=== PATIENT | male | born 1960 | race Caucasian/White ===

== ENCOUNTER 2018-10-24 07:48 | Day surgery (SDC) | payer OTHER, SELFPAY ==
--- NOTE | 2018-10-13 02:09 | HP_ITS ---
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 Is patient in pain?: No Allergies No Known Allergies Allergy (Unverified 10/13/18 13:57) Medications aspirin 325 mg tablet 325 mg PO DAILY 10/13/18 [History Confirmed 10/13/18] omeprazole 20 mg capsule,delayed release 20 mg PO DAILY 10/13/18 [History Confirmed 10/13/18] [facility] Medical History GERD (gastroesophageal reflux disease) (Acute) Left inguinal hernia (Acute) Surgical History H/O umbilical hernia repair (Acute) s/p vein surgery (Acute) Social History Smoking Status: Never smoker alcohol intake: current alcohol intake frequency: a few times a month HPI HPI HPI: BRAULIO GRANADOS, is a 58 M who presents to the office today for HPI HPI Surgical H&P: Yes HPI: BRAULIO GRANADOS is a 58 M who presents to the office today for evaluation of a bulge in his left inguinal area. Patient states that he has had this for probably better than 10 years it is been gradually getting larger he lifts heavy things and does this on occasion and has done this for many years. The only sensation he has is increasing pressure in the area and no obvious pain. He has had no change in his bowel or bladder habits and he has never had a colonoscopy Exam Const General: no acute distress, well developed, well hydrated Orientation: oriented to person, oriented to place, oriented to time [facility] Head: normocephalic, atraumatic Ears: external ears normal Mouth: moist mucous membranes Eyes Sclera: sclerae normal Pupils: normal by confrontation Neck Neck: no lymphadenopathy noted Neck mass: No Thyroid: thyroid normal, symmetrical Chest Chest palpation & inspection: normal inspection of the chest Resp Effort & Inspection: normal respiratory effort Auscultation: clear to auscultation bilaterally Percussion: percussion normal Cardio Rate: regular rate Rhythm: regular rhythm GI Palpation: soft, no hepatosplenomegaly, no masses, tender Rectal Exam: other Other: A Hernia bilateral inguinal hernia is identified on exam and both are reducible. Rectal exam deferred. Extrem General: normal to inspection, no clubbing, cyanosis or edema Assessment & Plan Problems 1. Non-recurrent bilateral inguinal hernia without obstruction or gangrene K40.20 2. Encounter for screening for malignant neoplasm of colon Z12.11 Plan I have discussed the above with the patient. I have offered the patient colonoscopy for evaluation. I have explained the risks/benefits of the procedure and described the procedure. I have discussed the risks with the patient, including but not limited to: infection, bleeding, perforation of the GI tract requiring emergency surgery, inability to complete the procedure, injury to any internal organs, complications of anesthesia, etc. - the patient understands and agrees to proceed. I have answered all the patient's questions to the patient's satisfaction and the patient has no further questions. The patient has been given instructions for the colon cleansing preparation. My plan is to perform a laparoscopic bilateral inguinal hernia repair. The planned surgical procedure was discussed extensively with the patient. The risks, benefits, anticipated outcomes and possible complication were mentioned. The patient understands that all hernia repair surgery has a chance of recurrence and/or chronic post-operative pain. My staff has also explained the procedure in understandable terms and the patient was given the option to take printed material concerning the planned procedure. The patient had the opportunity to ask questions concerning the planned procedure. The patient freely consents to the planned procedure. Coding Level of Care Code Off vis,new,level 3 Diagnoses Non-recurrent bilateral inguinal hernia without obstruction or gangrene K40.20 ??Obstruction and gangrene presence: without obstruction or gangrene ??Recurrence: non-recurrent Encounter for screening for malignant neoplasm of colon Z12.11 Date Kalia Gotti MD I have re-examined the patient. There are no clinical changes since date of exam.
[2018-10-13 13:56] VITALS: BMI 31.4
[2018-10-24 08:16] VITALS: BP 143/89; PULSE 79; RESP 16; TEMP 36.8; O2SAT 97; BMI 31.1
--- NOTE | 2018-10-24 09:32 | OP.ENDO_ITS ---
10/24/2018 Leif Ledezma Re : Colonoscopy procedure for Charlie Modi Deajim Ledezma This procedure was performed on Wednesday, October 24, 2018. My impressions and recommendations are as follows: Impressions : - Diverticulosis in the sigmoid colon. No specimens collected. - Non-bleeding internal hemorrhoids. - The examination was otherwise normal. Recommendations : - Discharge patient to home. - Resume previous diet. - Continue present medications. - Await pathology results. - Repeat colonoscopy in 10 years for screening purposes. - Return to my office after hernia surgery are complete. My findings are described in the full procedure note, which is enclosed. If I can be of further assistance, please feel free to contact me at Doctor phone number(s): , Fax: [phone], Work: . Sincerely, MD Kalia Butler MD 10/24/2018 9:32:22 AM This report has been signed electronically.
[2018-10-24 09:33] VITALS: BP 140/102; BP 143/89; PULSE 80; RESP 14; TEMP 36.8; O2SAT 93
[2018-10-24 09:40] VITALS: BP 141/91; BP 143/89; PULSE 70; RESP 16; O2SAT 95
[2018-10-24 09:45] VITALS: BP 135/100; BP 143/89; PULSE 71; RESP 16; O2SAT 94
[2018-10-24 09:50] VITALS: BP 130/104; BP 143/89; PULSE 64; RESP 16; TEMP 36.6; O2SAT 94
[2018-10-24 10:16] VITALS: BP 143/89
== END 2018-10-24 10:17 | disposition home or self-care (01) ==
LOC: EN 07:49 → AC 07:50
PROVIDERS: Visit Provider Surgery
PROC: 0DJD8ZZ Inspection of Lower Intestinal Tract, Via Natural or Artificial Opening Endoscopic (ICD-10-PCS; CPT 45378; principal; 2018-10-24 08:55)
DX: Z12.11 Encounter for screening for malignant neoplasm of colon (principal); K40.20 Bilateral inguinal hernia, without obstruction or gangrene, not specified as recurrent; K57.30 Diverticulosis of large intestine without perforation or abscess without bleeding; K64.8 Other hemorrhoids; Z79.82 Long term (current) use of aspirin
CPT/HCPCS: 45378; J7120

== ENCOUNTER 2018-11-08 05:20 | Day surgery (SDC) | payer OTHER, SELFPAY ==
--- NOTE | 2018-10-13 02:09 | HP_ITS ---
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 Is patient in pain?: No Allergies No Known Allergies Allergy (Unverified 10/13/18 13:57) Medications aspirin 325 mg tablet 325 mg PO DAILY 10/13/18 [History Confirmed 10/13/18] omeprazole 20 mg capsule,delayed release 20 mg PO DAILY 10/13/18 [History Confirmed 10/13/18] [facility] Medical History GERD (gastroesophageal reflux disease) (Acute) Left inguinal hernia (Acute) Surgical History H/O umbilical hernia repair (Acute) s/p vein surgery (Acute) Social History Smoking Status: Never smoker alcohol intake: current alcohol intake frequency: a few times a month HPI HPI HPI: BRAULIO GRANADOS, is a 58 M who presents to the office today for HPI HPI Surgical H&P: Yes HPI: BRAULIO GRANADOS is a 58 M who presents to the office today for evaluation of a bulge in his left inguinal area. Patient states that he has had this for probably better than 10 years it is been gradually getting larger he lifts heavy things and does this on occasion and has done this for many years. The only sensation he has is increasing pressure in the area and no obvious pain. He has had no change in his bowel or bladder habits and he has never had a colonoscopy Exam Const General: no acute distress, well developed, well hydrated Orientation: oriented to person, oriented to place, oriented to time [facility] Head: normocephalic, atraumatic Ears: external ears normal Mouth: moist mucous membranes Eyes Sclera: sclerae normal Pupils: normal by confrontation Neck Neck: no lymphadenopathy noted Neck mass: No Thyroid: thyroid normal, symmetrical Chest Chest palpation & inspection: normal inspection of the chest Resp Effort & Inspection: normal respiratory effort Auscultation: clear to auscultation bilaterally Percussion: percussion normal Cardio Rate: regular rate Rhythm: regular rhythm GI Palpation: soft, no hepatosplenomegaly, no masses, tender Rectal Exam: other Other: A Hernia bilateral inguinal hernia is identified on exam and both are reducible. Rectal exam deferred. Extrem General: normal to inspection, no clubbing, cyanosis or edema Assessment & Plan Problems 1. Non-recurrent bilateral inguinal hernia without obstruction or gangrene K40.20 2. Encounter for screening for malignant neoplasm of colon Z12.11 Plan I have discussed the above with the patient. I have offered the patient colonoscopy for evaluation. I have explained the risks/benefits of the procedure and described the procedure. I have discussed the risks with the patient, including but not limited to: infection, bleeding, perforation of the GI tract requiring emergency surgery, inability to complete the procedure, injury to any internal organs, complications of anesthesia, etc. - the patient understands and agrees to proceed. I have answered all the patient's questions to the patient's satisfaction and the patient has no further questions. The patient has been given instructions for the colon cleansing preparation. My plan is to perform a laparoscopic bilateral inguinal hernia repair. The planned surgical procedure was discussed extensively with the patient. The risks, benefits, anticipated outcomes and possible complication were mentioned. The patient understands that all hernia repair surgery has a chance of recurrence and/or chronic post-operative pain. My staff has also explained the procedure in understandable terms and the patient was given the option to take printed material concerning the planned procedure. The patient had the opportunity to ask questions concerning the planned procedure. The patient freely consents to the planned procedure. Coding Level of Care Code Off vis,new,level 3 Diagnoses Non-recurrent bilateral inguinal hernia without obstruction or gangrene K40.20 ??Obstruction and gangrene presence: without obstruction or gangrene ??Recurrence: non-recurrent Encounter for screening for malignant neoplasm of colon Z12.11 Date Kalia Gotti MD I have re-examined the patient. There are no clinical changes since date of exam.
[2018-10-13 13:56] VITALS: BMI 31.4
--- NOTE | 2018-11-08 05:32 | EKG12_ITS ---
Test Reason : PRE-OP Blood Pressure : / mmHG Vent. Rate : 063 BPM Atrial Rate : 063 BPM P-R Int : 184 ms QRS Dur : 090 ms QT Int : 420 ms P-R-T Axes : 045 -24 019 degrees QTc Int : 429 ms Normal sinus rhythm Normal ECG Confirmed by KAMRAN LEBRON, [place] ([id number]), editor producer LOLA KESSLER ([id number]) on 11/16/2018 1:02:22 PM Referred By: Kalia Gotti Confirmed By:[place] ANDREW MD
[2018-11-08 05:54] VITALS: BP 142/94; PULSE 70; RESP 16; TEMP 36.8; O2SAT 97; BMI 31.3
[2018-11-08] MEDS: Cefazolin 2 GM in 0.9% Normal Saline 100 ML IV (07:12)
--- NOTE | 2018-11-08 07:31 | HP.PCM_ITS ---
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 Is patient in pain?: No Allergies No Known Allergies Allergy (Unverified 10/13/18 13:57) Medications aspirin 325 mg tablet 325 mg PO DAILY 10/13/18 [History Confirmed 10/13/18] omeprazole 20 mg capsule,delayed release 20 mg PO DAILY 10/13/18 [History Confirmed 10/13/18] [facility] Medical History GERD (gastroesophageal reflux disease) (Acute) Left inguinal hernia (Acute) Surgical History H/O umbilical hernia repair (Acute) s/p vein surgery (Acute) Social History Smoking Status: Never smoker alcohol intake: current alcohol intake frequency: a few times a month HPI HPI HPI: BRAULIO GRANADOS is a 58 M who presents to the office today for HPI HPI Surgical H&P: Yes HPI: BRAULIO GRANADOS is a 58 M who presents to the office today for evaluation of a bulge in his left inguinal area. Patient states that he has had this for probably better than 10 years it is been gradually getting larger he lifts heavy things and does this on occasion and has done this for many years. The only sensation he has is increasing pressure in the area and no obvious pain. He has had no change in his bowel or bladder habits and he has never had a colonoscopy Exam Const General: no acute distress, well developed, well hydrated Orientation: oriented to person, oriented to place, oriented to time [facility] Head: normocephalic, atraumatic Ears: external ears normal Mouth: moist mucous membranes Eyes Sclera: sclerae normal Pupils: normal by confrontation Neck Neck: no lymphadenopathy noted Neck mass: No Thyroid: thyroid normal, symmetrical Chest Chest palpation & inspection: normal inspection of the chest Resp Effort & Inspection: normal respiratory effort Auscultation: clear to auscultation bilaterally Percussion: percussion normal Cardio Rate: regular rate Rhythm: regular rhythm GI Palpation: soft, no hepatosplenomegaly, no masses, tender Rectal Exam: other Other: A Hernia bilateral inguinal hernia is identified on exam and both are reducible. Rectal exam deferred. Extrem General: normal to inspection, no clubbing, cyanosis or edema Assessment & Plan Problems 1. Non-recurrent bilateral inguinal hernia without obstruction or gangrene K40.20 2. Encounter for screening for malignant neoplasm of colon Z12.11 Plan I have discussed the above with the patient. I have offered the patient colonoscopy for evaluation. I have explained the risks/benefits of the procedure and described the procedure. I have discussed the risks with the patient, including but not limited to: infection, bleeding, perforation of the GI tract requiring emergency surgery, inability to complete the procedure, injury to any internal organs, complications of anesthesia, etc. - the patient understands and agrees to proceed. I have answered all the patient's questions to the patient's satisfaction and the patient has no further questions. The patient has been given instructions for the colon cleansing preparation. My plan is to perform a laparoscopic bilateral inguinal hernia repair. The planned surgical procedure was discussed extensively with the patient. The risks, benefits, anticipated outcomes and possible complication were mentioned. The patient understands that all hernia repair surgery has a chance of recurrence and/or chronic post-operative pain. My staff has also explained the procedure in understandable terms and the patient was given the option to take printed material concerning the planned procedure. The patient had the opportunity to ask questions concerning the planned procedure. The patient freely consents to the planned procedure. Coding Level of Care Code Off vis,new,level 3 Diagnoses Non-recurrent bilateral inguinal hernia without obstruction or gangrene K40.20 ??Obstruction and gangrene presence: without obstruction or gangrene ??Recurrence: non-recurrent Encounter for screening for malignant neoplasm of colon Z12.11 Date _ Kalia Gotti MD I have re-examined the patient. There are no clinical changes since date of exam. 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 There are no clinical changes since date of exam.
--- NOTE | 2018-11-08 07:32 | OP.PCM_ITS ---
Problem List (1) Bilateral inguinal hernia (BIH) Status: Acute Qualifiers: Obstruction and gangrene presence: without obstruction or gangrene Recurrence: non-recurrent Qualified Code(s): K40.20 - Bilateral inguinal hernia, without obstruction or gangrene, not specified as recurrent Report of Operation Date of Procedure: 11/08/18 Pre-Operative Diagnosis: Bilateral inguinal hernias Post-Operative Diagnosis: Same Surgery/Procedure Performed:: Laparoscopic bilateral inguinal hernia repair Type of Anesthesia:: General Anesthesiologist: Fernando Lozano Estimated Blood Loss (mL): < 25 cc Description of Procedure: Patient was brought into the operating room placed in the supine position under excellent general endotracheal intubation a Perez catheter was placed the abdomen was sterilely prepped and draped in usual fashion. Local was injected infraumbilically curvilinear incision was made dissection was carried down to the fascia the fascia grasped with [place] varies needle was placed inside the abdomen the abdomen was insufflated to 15 torr. A 10/12 trocar was placed without difficulty. It was flank by 2 #5 trochars placed under direct visualization. Patient was placed in the head down rotated to the left I started to score the peritoneum on the right side I dissected down and identified a direct inguinal hernia brought this back dissected laterally dissecting the cord and vessel structures free I fashioned a large 3D max mesh into the right side I used the pro-tacker intact it to Terry's ligament I tacked it superiorly and laterally covering all the defects. In the process of doing this dissection I dissected and saw that the patient also had a direct inguinal hernia on the left side I started to dissect this free minimally and then I will rotated the patient from the left side to the right side and then I scored the peritoneum on the left dissected down to the direct inguinal hernia and brought it back through into the peritoneal cavity identifying Terry's ligament I then dissected further laterally dissecting the cord and vessel structures free once I had this completely freed I fashioned a large 3D max mesh into the wound I tacked it to Terry's ligament with the pro-tacker tacked it superiorly and laterally making sure the mesh laid flat. Once I saw both sides lay flat I then reperitonealized area with a pro-tacker covering both pieces of mesh completely. Ilioinguinal nerve blocks were performed on both sides. Trochars were removed under direct visualization good hemostasis was noted to close the fascia the umbilical port with a figure stitch of 0 Vicryl skin incisions were closed with some particular stitches of 4-0 Monocryl Steri-Strips were applied sterile dressings were applied and the patient tolerated the procedure well. - Admit VTE Documentation VTE Present on Admission: No VTE Mechan Device Prophylaxis: SCD's VTE Pharm Prophylaxis ordered?: No Reason prophylaxis not ordered:: Treatment Not Indicated
--- NOTE | 2018-11-08 07:35 | DCINST_ITS ---
Discharge Diet: Light diet - advance as tolerated Discharge Activity: Return to Normal Activity, May Drive - when you are no longer taking narcotic pain medications., May Shower - with the bandage in place 1-2 days after surgery. Lifting Restrictions: 20 pounds for 8 weeks. Additional Activity Instructions:: Climbing stairs is fine, walking is encouraged. Sitting in bed may be uncomfortable. Sitting up using your lateral muscles (sitting up sideways) is usually more comfortable. Do not drive, work heavy equipment of sign legal documents for 24 hours. If your hernia repair was an ingunial repair, you may have scrotal swelling, an ice pack and/or athletic support can provide more comfort. Pain medications may cause nausea, you should typically eat light foods as you take your pain medications. Pain medications may also cause constipation. If you have difficulty with this, discuss with your doctor. Call your doctor if your incision/area has: Continuous Slow Oozing, Sudden Increased Bleeding, Increased Pain/ Swelling, Increased Redness, Foul Smelling Discharge Call your doctor if you observe: Fever of 101 or Higher Suture Line Care: Avoid Pulling/Pushing, Avoid Pinching/Bending Additional Dressing/Incision Instructions:: Leave the operative bandage on for 2-3 days. When you remove the bandage, leave the steri-strips on place until your follow up appointment or they fall off. Allergies/Adverse Reactions: Allergies No Known Allergies Allergy (Verified 11/01/18 11:02) Medications to take at Discharge aspirin 325 mg tablet 325 mg PO DAILY 10/13/18 Oxycodone HCl/Acetaminophen [Percocet 5/325] 1 - 2 tab PO Q4H PRN PRN 6 Days #30 tab 11/08/18 The following prescriptions were given: Oxycodone HCl/Acetaminophen [Percocet 5/325] 1 - 2 tab PO Q4H PRN PRN 6 Days #30 tab PRN Reason: Pain Prescription Printed Primary Care Physician: Leif Ledezma MD [Primary Care Provider] - Test Results: Test results from this visit will be discussed in further detail at your follow- up appointment, if applicable. Please Follow Up With: Kalia Gotti MD - [phone] When: Plan to have a follow up appointment in 7 days. Call to schedule.
[2018-11-08] MEDS: Bupivacaine Mpf 0.5% 30 ML VIAL (08:25)
[2018-11-08 08:41] VITALS: BP 142/94; BP 146/98; PULSE 58; RESP 16; TEMP 36.3; O2SAT 95
[2018-11-08 08:45] VITALS: BP 129/93; BP 142/94; PULSE 57; RESP 16; O2SAT 97
[2018-11-08 09:00] VITALS: BP 122/77; BP 142/94; PULSE 54; RESP 16; O2SAT 96
[2018-11-08 09:15] VITALS: BP 120/77; BP 142/94; PULSE 55; RESP 16; TEMP 36.1; O2SAT 97
[2018-11-08 10:45] VITALS: BP 135/89; BP 142/94; PULSE 56; RESP 16; TEMP 36.4; O2SAT 94
== END 2018-11-08 10:58 | disposition home or self-care (01) ==
LOC: SDC 05:23 → AC 05:23
PROVIDERS: Referring Provider Surgery; Visit Provider Surgery
PROC: (CPT 49650; principal; 2018-11-08 06:55)
DX: K40.20 Bilateral inguinal hernia, without obstruction or gangrene, not specified as recurrent (principal); Z79.82 Long term (current) use of aspirin
CPT/HCPCS: 49650; 93005; J7120; C1781; J2405

== ENCOUNTER → 2023-05-04 | Outpatient (CLI) | payer BC, SELFPAY ==
--- NOTE | 2023-05-04 13:19 | MRI_ITS ---
EXAMINATION: MR Prostate WO/W Contrast COMPARISON: None CLINICAL HISTORY: 62 yo M with elevated PSA Most recent PSA = 7.1 ng/ml TECHNIQUE Standard prostate MR protocol was used before and after administration of 23 cc of IV Clariscan. FINDINGS: Prostate volume: 85 cc PSA density: 0.08 ng/ml2 Length of membranous urethra: 20 mm Post-biopsy hemorrhage: None Multiparametric MR evaluation: Heterogeneous appearance of the central gland is consistent with benign prostatic hyperplasia. Lesion 1: LOCATION - there is an 8 x 6 x 7 mm moderately T2 dark ill-defined lesion in the right anterior transitional zone at apex. There is no significant restricted diffusion. T2 - 3 DWI - 1 DCE - negative Overall PI-RADS v2 score = 3 Capsular margin and neurovascular bundle: Not involved Seminal vesicles: Not involved. Lymph nodes: No lymphadenopathy in the field of view. Bones: No suspicious lesions in the field of view. MRI/Pelvis W/WO Contrast IMPRESSION: 8 mm PI-RADS 3 lesion in the right anterior TZ near apex. - No evidence of macroscopic extracapsular extension. - No evidence of seminal vesicle invasion. - No lymphadenopathy. - No suspicious bone lesions. Benign prostatic hyperplasia. Electronically Signed: Juvenal Lisa MD at 12:40 EST ,
[2023-05-04 13:45] LABS: CREATININE FINGERSTICK 1.1 mg/dL (0.70-1.30); EGFR FINGERSTICK > 60.0000 mL/min (>60)
== END | disposition home or self-care (01) ==
LOC: MRI 13:13
PROVIDERS: Referring Provider Urology; Visit Provider Urology
DX: R97.20 Elevated prostate specific antigen [PSA] (principal)
CPT/HCPCS: 72197; A9575

== ENCOUNTER → 2023-05-20 | Outpatient (CLI) | payer OTHER, SELFPAY ==
--- NOTE | 2023-05-20 10:45 | PROSBIL_PTH ---
PATHOLOGY RESULTS PATIENT: BRAULIO GRANADOS LOC: [facility] U#:[id number] AGE/SX: 62/M ROOM: RE05/20/[address]: Dr. Samy Hernandez MD : [id number] BED: DIS: 05/20/2023 SPEC #: [id number] RECD: 05/21/23 07:32 STATUS: [place] #: [id number] JOB: 05/20/23 10:[address]: Samy Hernandez DEPT: SURGICAL PATHOLOGY RECD BY: Dayana Carney ENTERED: 05/21/23 07:33 SP TYPE: PROST BX SABINA DR: Dr. Leif Ledezma MD Tissues: PROSTATE RIGHT PROSTATE RIGHT PROSTATE RIGHT PROSTATE LEFT PROSTATE LEFT PROSTATE LEFT Procedures: PROSTATE BX HEADER OPERATION: Prostate biopsy PRE-OP DIAGNOSIS: Elevated PSA TISSUE SUBMITTED: A - Right apex, B - Right mid, C - Right base, D - Left apex, E - Left mid, F - Left base MICROSCOPIC DIAGNOSIS A. Right prostate, apex, core biopsy: Prostatic tissue, negative for malignancy. Focal chronic inflammation. B. Right prostate, mid, core biopsy: Prostatic tissue, negative for malignancy. C. Right prostate, base, core biopsy: Prostatic tissue, negative for malignancy. D. Left prostate, apex, core biopsy: Prostatic tissue, negative for malignancy. Focal chronic inflammation. E. Left prostate, mid, core biopsy: Prostatic tissue, negative for malignancy. F. Left prostate, base, core biopsy: Prostatic tissue, negative for malignancy. SJ:ida 05/24/2023 MICROSCOPIC DESCRIPTION Slides are reviewed. GROSS DESCRIPTION A - Received is one container designated prostate, right apex. The specimen consists of two elongated fragments of light renteria-white soft tissue measuring 0.8 and 1.5 cm in length and 0.1 cm in diameter. The specimen is totally submitted in one cassette. B - Received is one container designated prostate, right mid. The specimen consists of two elongated fragments of light renteria-white soft tissue each measuring 1.0 cm in length and 0.1 cm in diameter. The specimen is totally submitted in one cassette. C - Received is one container designated prostate, right base. The specimen consists of two elongated fragments of light renteria-white soft tissue each measuring 1.0 cm in length and 0.1 cm in diameter. The specimen is totally submitted in one cassette. D - Received is one container designated prostate, left apex. The specimen consists of two elongated fragments of light renteria-white soft tissue measuring 1.0 and 1.1 cm in length and 0.1 cm in diameter. The specimen is totally submitted in one cassette. E - Received is one container designated prostate, left mid. The specimen consists of two elongated fragments of light renteria-white soft tissue measuring 1.0 and 1.4 cm in length and 0.1 cm in diameter. The specimen is totally submitted in one cassette. F - Received is one container designated prostate, left base. The specimen consists of two elongated fragments of light renteria-white soft tissue measuring 1.0 and 1.5 cm in length and 0.1 cm in diameter. The specimen is totally submitted in one cassette. / SJ:rg 05/21/2023 TC:3 CPT: 84039 x6
--- OUTSIDE RECORDS SUMMARY | 2023-05-20 18:45 | XMS RPT_ITS | CCD ---
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 Role Phone Bryant Ledezma Primary Care Provider JUANCARLOS FERRO Attending Unavailable JUANCARLOS FERRO Referring Unavailable BRYANT LEDEZMA Primary Care Unavailable JUANCARLOS FERRO Attending Unavailable JUANCARLOS FERRO Referring Unavailable BRYANT LEDEZMA Primary Care Unavailable JUANCARLOS FERRO Attending Unavailable JUANCARLOS FERRO Referring Unavailable BRYANT LEDEZMA Primary Care Unavailable JUANCARLOS FERRO Attending Unavailable JUANCARLOS FERRO Referring Unavailable BRYANT LEDEZMA Primary Care Unavailable JUANCARLOS FERRO Attending Unavailable JUANCARLOS FERRO Referring Unavailable BRYANT LEDEZMA Primary Care Unavailable SYSTEM, PROVIDER NOT IN Referring BRYANT Coronado Primary Care Unavailable SHAYNE AARON Consulting Unavailab LETTY Perkins Attending Unavailable LETTY HUDSON Admitting Unavailable Bryant Ledezma Primary Care Provider Bryant Ledezma DO Primary Care Provider MIRIAN NIETO Attending Unavailab BRYANT Moreira Primary Care Unavailable Medications Current Medications Medication Drug Class(es) Dates Sig (Normalized) Sig (Original) apixaban 2.5 mg oral tablet (5 sources) Factor Xa Inhibitor Start: 05-17-2021 take 1 tablet by mouth twice daily apixaban (Eliquis) 2.5 mg Tab Indications: PE (pulmonary thromboembolism) (HCC) Take 1 (one) tablet (2.5 mg total) by mouth 2 (two) times a day Start: 01/01/22. 180 tablet 3 05/17/2021 Active Completed/Discontinued Medications Medication Drug Class(es) Dates Sig (Normalized) Sig (Original) acetaminophen 325 mg oral tablet (1 source) Start: 12-03-2019 End: 12-04-2019 take 1 tablet by mouth every four hours as needed 650 mg, Oral, Every 4 hours PRN, mild pain, fever 100.4 F or greater, headaches, Starting 12/03/19 at 1810 aluminum hydroxide 40 mg/ml / magnesium hydroxide 40 mg/ml / simethicone 4 mg/ml oral suspension (1 source) Start: 12-03-2019 End: 12-04-2019 take 30 mL by mouth every four hours as needed 30 mL, Oral, Every 4 hours PRN, indigestion, Starting 12/03/19 at 1809 aspirin 325 mg oral tablet (7 sources) Platelet Aggregation Inhibitor, Nonsteroidal Anti-inflammatory Drug End: 12-04-2019 take 1 tablet by mouth once daily aspirin 325 MG tablet Take 325 mg by mouth daily . 0 12/04/2019 Discontinued (Stop Taking at Discharge) bisacodyl 10 mg rectal suppository (1 source) Stimulant Laxative Start: 12-03-2019 End: 12-04-2019 take 10 mg rectal route once daily as needed for constipation 10 mg, Rectal, Daily PRN, constipation, Starting 12/03/19 at 1809 Try oral medications first for constipation. Try rectal medication if oral meds are ineffective, not tolerated, or not ordered. 250 ml heparin sodium, porcine 100 unt/ml injection (1 source) Unfractionated Heparin, Anti-coagulant Start: 12-03-2019 End: 12-04-2019 heparin (porcine) 25,000 unit/250 mL(100 unit/mL) in D5W infusion heparin bolus from bag 0-10,000 Units (1 source) Start: 12-03-2019 End: 12-04-2019 heparin bolus from bag 0-10,000 Units magnesium hydroxide 80 mg/ml oral suspension (1 source) Start: 12-03-2019 End: 12-04-2019 take 2400 mg by mouth once daily as needed for constipation 2,400 mg (30 mL), Oral, Daily PRN, constipation, For constipation., Starting 12/03/19 at 1809 omeprazole 20 mg delayed release oral capsule (1 source) Proton Pump Inhibitor End: 07-11-2019 take 1 capsule by mouth once daily omeprazole (PRILOSEC) 20 MG capsule Take 20 mg by mouth daily . 0 07/11/2019 Discontinued (Patient's Request) ondansetron (ZOFRAN-ODT) disintegrating tablet 4 mg (1 source) Start: 12-03-2019 End: 12-04-2019 take 1 tablet by mouth every six hours as needed ondansetron (ZOFRAN-ODT) disintegrating tablet 4 mg perflutren lipid microspheres (DEFINITY) 0.143 mg/mL solution 0-10 mL of mixture (1 source) Start: 12-03-2019 End: 12-04-2019 perflutren lipid microspheres (DEFINITY) 0.143 mg/mL solution 0-10 mL of mixture technetium (Tc-99m) tetrofosmin (Tc-MYOVIEW) injection 8-25 millicurie (2 sources) Start: 07-21-2019 End: 07-21-2019 technetium (Tc-99m) tetrofosmin (Tc-MYOVIEW) injection 8-25 millicurie Problems Active Problems Problem Classification Problem Date Documented Da te Episodic/Chronic Essential hypertension (11 sources) Hypertensive disorder; Translations: [Essential (primary) hypertension] 07-11-2019 Chronic Other screening for suspected conditions (not mental disorders or infectious disease) (3 sources) Electrocardiogram abnormal; Translations: [Abnormal ECG] Episodic Phlebitis; thrombophlebitis and thromboembolism (9 sources) Deep venous thrombosis of lower extremity; Translations: [Deep venous thrombosis] 07-11-2019 Episodic Phlebitis; thrombophlebitis and thromboembolism (4 sources) Acute deep venous thrombosis of right femoral vein; Translations: [Acute deep vein thrombosis (DVT) of femoral vein of right lower extremity (HCC)] 12-04-2019 Pulmonary heart disease (16 sources) Pulmonary thromboembolism; Translations: [Acute pulmonary embolism] Onset: 0 07-11-2019 Episodic Past or Other Problems Problem Classification Problem Date Documented Da te Episodic/Chronic Other lower respiratory disease (12 sources) Dyspnea on exertion; Translations: [Dyspnea, unspecified] Onset: 07-11-2019 Resolved: 02-21-2020 07-11-2019 Episodic Results Test Name Value Interpretation Reference Range Facil ity Vital Signs Date Time Vital Sign Value Performing Clinician Faci lity 04-16-2021 12:29-0500 Diastolic blood pressure 80 mm[Hg] Mirian Nieto MD Work Phone: [facility] 04-16-2021 12:29-0500 Systolic blood pressure 121 mm[Hg] Mirian Nieto MD Work Phone: [facility] 04-16-2021 12:28-0500 Body height 193 cm Mirian Nieto MD Work Phone: [facility] 04-16-2021 12:28-0500 Body mass index (BMI) [Ratio] 30.43 kg/m2 Mirian Nieto MD Work Phone: [facility] 04-16-2021 12:28-0500 Body weight 113.4 kg Mirian Nieto MD Work Phone: [facility] 04-16-2021 12:28-0500 Heart rate 60 /min Mirian Nieto MD Work Phone: [facility] 02-21-2020 09:41-0400 BP Diastolic 75 mm[Hg] Mirian Nieto [facility] 02-21-2020 09:41-0400 BP Systolic 125 mm[Hg] Mirian Nieto [facility] 02-21-2020 09:41-0400 Pulse (Heart Rate) 73 /min Mirian Nieto [facility] 02-21-2020 09:39-0400 BMI (Body Mass Index) 30.58 kg/m2 Mirian Nieto [facility] 02-21-2020 09:39-0400 Body weight 113.94 kg Mirian Nieto [facility] 12-04-2019 10:54-0400 Body Temperature 97.9 [degF] [facility] 12-04-2019 10:54-0400 BP Diastolic 84 mm[Hg] [facility] 12-04-2019 10:54-0400 BP Systolic 124 mm[Hg] [facility] 12-04-2019 10:54-0400 Pulse (Heart Rate) 73 /min [facility] 12-04-2019 10:54-0400 Pulse Oximetry 93 % [facility] 12-04-2019 10:54-0400 Respiratory Rate 12 /min [facility] 12-03-2019 17:41-0400 BMI (Body Mass Index) 29.47 kg/m2 [facility] 12-03-2019 17:41-0400 Body weight 109.8 kg [facility] 12-03-2019 17:41-0400 Height 193 cm [facility] 07-21-2019 10:37-0500 BMI (Body Mass Index) 31.04 kg/m2 Juancarlos Padronhmy [facility] 07-21-2019 10:37-0500 Body weight 115.67 kg Juancarlos Padronhmy [facility] 07-21-2019 10:37-0500 BP Diastolic 96 mm[Hg] [facility]-2019 10:37-0500 BP Systolic 137 mm[Hg] Juacnarlos Padronhmy [facility] 07-21-2019 10:37-0500 Height 193 cm Juancarlos Jane [facility] 07-21-2019 10:37-0500 Pulse (Heart Rate) 59 /min Juancarlos Jane [facility] 07-11-2019 14:18-0500 BP Diastolic 87 mm[Hg] [facility] 07-11-2019 14:18-0500 BP Systolic 129 mm[Hg] Juancarlos [facility] 07-11-2019 14:12-0500 BMI (Body Mass Index) 31.1 kg/m2 Juancarlos Padronhmy [facility] 07-11-2019 14:12-0500 Body weight 115.89 kg Juancarlos Padronhmy [facility] 07-11-2019 14:12-0500 Height 193 cm [facility] 07-11-2019 14:12-0500 Pulse (Heart Rate) 67 /min [facility] 07-11-2019 14:12-0500 Pulse Oximetry 94 % [facility] Encounters Encounter Date Encounter Type Care Provider Facility Start: 04-16-2021 End: 04-16-2021 ambulatory MIRIAN NIETO [facility] Start: 04-16-2021 End: 04-16-2021 Office outpatient visit 15 minutes Mirian Nieto MD Work Phone: [facility] Procedures Date Procedure Procedure Detail Performing Clinician Start: 12-04-2019 Echocardiography Fredis Veliz Work Phone: Start: 12-04-2019 APTT - reference Garry Aaron Work Phone: Start: 12-04-2019 Basic metabolic 2000 panel - Serum or Plasma Fredis Veliz Work Phone: Start: 12-04-2019 Complete blood count (hemogram) panel - Blood by Automated count Fredis Veliz Work Phone: Start: 12-04-2019 APTT - reference Fredis Veliz Work Phone: Start: 12-03-2019 Dup-scan xtr veins c omplete bilateral study Fredis Veliz Work Phone: Start: 12-03-2019 Basic metabolic 2000 panel - Serum or Plasma Fredis Veliz Work Phone: Start: 12-03-2019 Complete blood count (hemogram) panel - Blood by Automated count Fredis Veliz Work Phone: Start: 12-03-2019 INR in Platelet poor plasma by Coagulation assay Fredis Veliz Work Phone: Start: 12-03-2019 Natriuretic peptide. B prohormone N-Terminal [Mass/volume] in Serum or Plasma Fredis Veliz Work Phone: Start: 07-21-2019 Radionuclide myocard ial perfusion study Juancarlos Ferro Work Phone: Start: 07-21-2019 Echocardiography Juancarlos Ferro Work Phone: Start: 07-11-2019 12 lead ECG Juancarlos brantley Work Phone: Start: 10-24-2018 Colonoscopy Mirian hawk MD Work Phone: Plan of Treatment Date Care Activity Detail Author Start: 10-24-2028 Screening for malign ant neoplasm of colon [facility] Start: 02-20-2021 End: 02-20-2021 Complete blood count with white cell differential, manual CBC and differential Lab Routine Hypertension, unspecified type Expected: 02/20/2021, Expires: 02/20/2021 [facility] Payers Date Payer Category Payer Unknown [employer] PPO xxxxxxxxxxxx 2012-Present xxxxxxxxxxxx [id number] 2012 Unknown [id number] 2012 Unknown [employer] PPO [id number] 2012-Present [id number] 2012 Unknown [employer] PPO [id number] 2012-Present [phone] [address] [place] [address] [id number] 1960 Unknown [id number] 1960 Unknown [id number] 1960 Unknown [id number] 1960 Unknown [id number] 1960 Unknown [id number] 1960 Unknown [id number] 1960 Unknown [id number] Social History Date Type Detail Facility Start: 07-11-2019 End: 12-04-2019 Tobacco smoking status NHIS Never smoker [facility] Start: 07-11-2019 End: 04-16-2021 Alcohol intake Current drinker of alcohol (finding) [facility] Start: 1960 Sex Assigned At Not on file [facility] Start: 07-11-2019 End: 02-21-2020 Tobacco use and exposure Never used [facility] Exposure to SARS-CoV -2 (event) Not sure [facility] Start: 04-16-2021 Alcohol intake [facility] th Note 04-16-2021 Assessment & Plan Note - Mirian Nieto MD - 04/16/2021 12:50 PM ESTAssessment & Plan Note - Mirian Nieto MD - 04/16/2021 12:50 PM EST Note Date & Type Note Facility 04-16-2021 Miscellaneous Notes Associated Problem(s): Acute deep vein thrombosis (DVT) of femoral vein of right lower extremity (HCC) Chronic venous hypertension with right greater than left varicose veins noted. These are all sequela of prior DVTs/post thrombotic. CEAP 4. 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 He was off of anticoagulation for approximately 10 years unfortunately suffered another low risk PE in November 2019. He has been placed on apixaban which she remains on to this day. He has no obvious hypercoagulable condition. Lifelong anticoagulation, I will plan on reducing him to extended therapy apixaban starting in May when he finishes his current supply, now 2.5 mg twice daily I will see him yearly or sooner if necessary. documented in this encounter [facility] Instructions 04-16-2021 Patient Instructions Note Date & Type Note Facility 04-16-2021 Instructions Vannesa Chamorro RN - 04/16/2021 12:40 PM EST We will see you back in the office: [address] Nieto Medication Changes: Starting 05/17/2021-Eliquis 2.5mg twice daily If you have any questions regarding testing or appointments, please call TANA Batres [phone] documented in this encounter [facility] History of Present illness Narrative 04-16-2021 Mirian Nieto MD - 04/16/2021 12:35 PM EST Note Date & Type Note Facility 04-16-2021 History of Presen t illness Narrative [facility] Consult Heart & Vascular [facility] 04/16/2021 Mirian Nieto MD [address] [facility] [address] Patient: Charlie Modi Date of : 1960 (60 y.o.) Referring Provider: No ref. 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 He was off of anticoagulation for approximately 10 years unfortunately suffered another low risk PE in November 2019. He has been placed on apixaban which she remains on to this day. He has no obvious hypercoagulable condition. Lifelong anticoagulation, I will plan on reducing him to extended therapy apixaban starting in May when he finishes his current supply, now 2.5 mg twice daily I will see him yearly or sooner if necessary. Acute deep vein thrombosis (DVT) of femoral vein of right lower extremity (HCC) Chronic venous hypertension with right greater than left varicose veins noted. These are all sequela of prior DVTs/post thrombotic. CEAP 4. Continue graduated compression stockings, knee-high, 20-30 mmHg Follow-up: No follow-ups on file. Chief Complaint: Follow-up Subjective History of Present Illness: Charlie Modi is a 60 y.o. male with a remote history of recurrent PE back in the early and then again a low risk pulmonary embolism in November 2019. He returns for yearly cardiovascular follow-up for his DVT/PE. 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 He has no specific complaints today. He is tolerating all of his anticoagulation without any adverse bleeding events. He is breathing well and has no complaints today. Objective Tobacco Use Smoking Status Never Smoker Smokeless Tobacco Never Used ECG 12 Lead Final Result by Juancarlos Ferro MD (07/11/2019 1421) Echocardiogram complete Final Result by Bryant Vick DO (12/04/2019 0822) HOME Medications: Patient's Medications New Prescriptions No medications on file Previous Medications LISINOPRIL (PRINIVIL,ZESTRIL) 10 MG TABLET Take 1 (one) tablet (10 mg total) by mouth daily . Modified Medications No medications on file Discontinued Medications APIXABAN (ELIQUIS) 5 MG TAB Take 2 tablets (10 mg total) by mouth 2 times a day for (7) days, then take 1 tab (5 mg total) by mouth 2 times a day . Vital Signs: BP 121/80 (BP Location: Left arm, Patient Position: Sitting) Pulse 60 Ht 6' 4 Wt 113.4 kg (250 lb) BMI 30.43 kg/m Physical Exam Vitals reviewed. Constitutional: Appearance: He is well-developed and well-nourished. HENT: Head: Normocephalic. Mouth/Throat: Mouth: Oropharynx is clear and moist. Eyes: General: Lids are normal. Conjunctiva/sclera: Conjunctivae normal. Neck: Vascular: No carotid bruit or JVD. Cardiovascular: Rate and Rhythm: Normal rate and regular rhythm. Pulses: Normal pulses. Heart sounds: Normal heart sounds. Pulmonary: Effort: Pulmonary effort is normal. Breath sounds: Normal breath sounds. Abdominal: General: Bowel sounds are normal. Palpations: Abdomen is soft. There is no hepatosplenomegaly or mass. Tenderness: There is no abdominal tenderness. Musculoskeletal: General: Normal range of motion. Skin: General: Skin is warm and intact. Findings: No rash. Neurological: Mental Status: He is alert. Psychiatric: Mood and Affect: Mood and affect normal. Behavior: Behavior normal. No results found for: CHOL, LDLCALC, LDLDIRECT, TRIG, HDL documented in this encounter [facility] Evaluation note Note Date & Type Note Facility documented in this encounter [facility] Reason for Referral Status Reason Specialty Diagnoses / Procedures Referred By Contact Referred To Contact Authorized Cardiology Diagnoses Exertional dyspnea Abnormal ECG Procedures Echocardiogram Juancarlos Verdin MD [address] [place] [address] Status Reason Specialty Diagnoses / Procedures Referred By Contact Referred To Contact Pending Review Radiology Diagnoses Exertional dyspnea Abnormal ECG Procedures NM Myocardial Perfusion Multiple SPECT Juancarlos Ferro MD [address] [place] [address] Status Reason Specialty Diagnoses / Procedures Referre d By Contact Referred To Contact Closed Cardiology Diagnoses Exertional dyspnea Abnormal ECG Procedures Echocardiogram Juancarlos Verdin MD [address] [place] [address] Status Reason Specialty Diagnoses / Procedures Referre d By Contact Referred To Contact Closed Radiology Diagnoses Exertional dyspnea Abnormal ECG Procedures NM Myocardial Perfusion Multiple SPECT Juancarlos Ferro MD [address] [place] [address] Instructions * Patient Instructions* Sary Toribio RN - 07/11/2019 2:22 PM EST .How to contact your Care Team: Provider: Juancarlos Ferro MD [facility] Nurse: Sary Toribio RN In case of an emergency please call 911. REFILLS: When in need for refills please call your care team or the office at [phone]. Please include medication name, pharmacy name, and specify 30-day or 90-day supply. Please check with your pharmacy within 24 hours of request for your refill. You must follow up as directed to continue current refills. Thank you! NUCLEAR MEDICINE CARDIAC STRESS TEST THIS IS A 3-4 HOUR TEST Instructions: Appointment Time: , ____/____/____ at ____:____ Prep: DO NOT Take your morning medications. Please bring your morning medications with you. NO CAFFEINE FOR 24 HOURS prior to your test. This includes drinks labeled decaffeinated. Nothing to eat 4 hours prior to your test. A small snack will be provided (crackers, granola bar, juice), or you may bring your own snack for after your stress test. You may drink fluids leading up to your test as long as they are caffeine-free. Decaffeinated drinks still contain some caffeine, please do not drink anything containing caffeine for 24 hours. NO SMOKING the day of your test. Wear comfortable shoes and clothing for exercising. Please wear short sleeves. No metal buttons or snaps. Procedure: Check-in/Registration. Please bring photo ID, insurance cards, and any physician orders. Test explained in detail and IV started. Stress test performed, nuclear medicine will be injected through your IV during the stress test. Stress test recovery period. Heart scan performed. The doctor will review the pictures of your heart and decide if more pictures are needed before youleave. If more are needed you will get another injection of nuclear medicine and this will take an additional hour. The total time for this test is 3-4 hours. There are medications that interfere with this test. You may be instructed to hold medications. If so that will be listed here: If you have any further questions please contact your care team or [phone]. documented in this encounter* Patient Instructions* Patricia Winter RN - 02/21/2020 10:09 AM EDT We will see you back in the office: 1 year Labs: Blood work prior to next visit (CBC) If you have any questions regarding testing or appointments, please call Patricia FAJARDO or Darlene KOWALSKI at [phone]. documented in this encounter History of Present Illness * Juancarlos Ferro MD - 07/11/2019 2:36 PM EST OFFICE CONSULTATION NOTE [facility] [address] [facility] [address] [facility] [address] Physicians: Bryant Ledezma DO (Family); Bryant Ledezma DO (Referring) Subjective: Charlie Modi is a 58 y.o. male seen in the office today for Establish Care (PCP requested f/u for c/o VALERIO. family hx of CAD. ); Shortness of Breath; and Chest Pain (states that he gets mild chest discomfort if he lays on right side ) . HPI: The patient is a pleasant 58-year-old gentleman with a past medical history significant for DVT of his left lower extremity on 2 occasions, 1 of which was associated with bilateral pulmonary emboli. He states he was on oral anticoagulation for a while but this was discontinued. He also has a history of venous insufficiency. He is treated for hypertension. He is here today with a 2-1/2-week history of dyspnea on exertion. He states this is a distinct change from his baseline. He was getting conversational dyspnea climbing 1 flight of stairs. Interestingly, he states that the symptoms resolverecently. He does note central chest discomfort which occurs when he lays on his right side. It is r elieved when he rolls over. He denies any orthopnea, paroxysmal internal dyspnea, syncope, or near syncope. Denies any prior cardiac history. Assessment & Plan: Hypertension His blood pressure is under excellent control on current medical therapy. Exertional dyspnea The patient has exertional dyspnea although it has improved since he presented to primary care. He states it feels different than the symptoms he had with pulmonary embolism. I have ordered a MyoviewSPECT given his abnormal EKG and a strong family history of heart disease. I have also ordered an echocardiogram to assess for LV function and right-sided pressures. The results of that work-up will be forthcoming. The risks and benefits of the procedure were explained to the patient and he verbalizes an understanding. DVT (deep venous thrombosis) ([facility]) Had 2 incidences of left lower extremity DVT. He does not appear to pose a particularly high bleeding risk. It would not be unreasonable to consider long- term oral anticoagulation given this history but I will leave that to primary care. Follow Up Ordered: Return if symptoms worsen or fail to improve. Histories: Past Medical History: Diagnosis Date DVT (deep venous thrombosis) ([facility]) Hypertension PE (pulmonary thromboembolism) ([facility]) Past Surgical History: Procedure Laterality Date HERNIA REPAIR x3 VARICOSE VEIN SURGERY Family History Problem Relation Age of Onset Heart disease Mother Stroke Mother Heart disease Father Other (CABG) Father 70 4 vessel Social History Tobacco Use Smoking status: Never Smoker Smokeless tobacco: Never Used Substance Use Topics Alcohol use: Yes Alcohol/week: 3.0 standard drinks Types: 3 Cans of beer per week Drug use: Never Current Outpatient Medications Medication Sig Dispense Refill aspirin 325 MG tablet Take 325 mg by mouth daily . lisinopriL (PRINIVIL,ZESTRIL) 10 MG tablet Take 10 mg by mouth daily . No current facility-administered medications for this visit. No Known Allergies Review of Systems Constitution: Negative for diaphoresis, malaise/fatigue, weight gain and weight loss. HENT: Negative for hearing loss, nosebleeds and tinnitus. Eyes: Negative for blurred vision and visual disturbance. Cardiovascular: Positive for chest pain, dyspnea on exertion and leg swelling. Negative for claudication, cyanosis, irregular heartbeat, near-syncope, orthopnea, palpitations, paroxysmal nocturnal dyspnea and syncope. Respiratory: Negative for hemoptysis, shortness of breath and snoring. Endocrine: Negative for cold intolerance and heat intolerance. Hematologic/Lymphatic: Does not bruise/bleed easily. Skin: Positive for color change. Negative for flushing, poor wound healing and rash. Musculoskeletal: Negative for back pain, muscle weakness and myalgias. Gastrointestinal: Negative for abdominal pain, change in bowel habit, melena, nausea and vomiting. Genitourinary: Negative for decreased libido and hematuria. Neurological: Negative for loss of balance and numbness. Psychiatric/Behavioral: Negative for memory loss. The patient is not nervous/anxious. Overview of Problems Addressed: Problem Exertional Dyspnea Hypertension Dvt (Deep Venous Thrombosis) (Formerly [facility]) Pe (Pulmonary Thromboembolism) (Formerly [facility]) Objective: Physical Exam Constitutional: He is oriented to person, place, and time. He appears well- developed and well-nourished. HENT: Head: Normocephalic. Eyes: Pupils are equal, round, and reactive to light. Conjunctivae and EOM are normal. No scleral icterus. Neck: Normal range of motion. Neck supple. No JVD present. No tracheal deviation present. No thyromegaly present. Cardiovascular: Normal rate, regular rhythm, S1 normal, S2 normal, normal heart sounds and intact distal pulses. Exam reveals no friction rub. No murmur heard. Pulmonary/Chest: Breath sounds normal. No respiratory distress. He has no wheezes. He has no rales. Abdominal: Soft. Bowel sounds are normal. He exhibits no distension and no mass. There is no hepatosplenomegaly. There is no abdominal tenderness. Musculoskeletal: Normal range of motion. General: Edema present. Comments: 1-2+ right and 2+ left lower extremity edema with changes of chronic venous stasis noted. Lymphadenopathy: He has no cervical adenopathy. Neurological: He is alert and oriented to person, place, and time. Skin: Skin is warm and dry. Psychiatric: He has a normal mood and affect. His behavior is normal. Vitals: Vitals: 07/11/19 1412 07/11/19 1418 BP: 119/81 129/87 BP Location: Left arm Left arm Patient Position: Sitting Sitting Pulse: 67 SpO2: 94% Weight: 115.9 kg (255 lb 8 oz) Height: 6' 4 Orders Placed This Encounter NM Myocardial Perfusion Multiple SPECT ECG 12 Lead Echocardiogram complete Thank you for allowing me to assist you in the cardiovascular care of this patient. Please don't hesitate to contact me if you have any questions regarding these thoughts. Juancarlos Ferro MD documented in this encounter* Mirian Nieto MD - 02/21/2020 10:13 AM EDT Peripheral Vascular Cardiology Clinic Consult Heart & Vascular [facility] 02/21/2020 Mirian Nieto MD [address] [facility] [address] Patient: Charlie Modi Date of : 1960 (59 y.o.) Referring Provider: Kalia Oglesby MD PCP: Bryant Ledezma, DO Assessment & Plan Acute pulmonary embolism (HCC) Recurrent PEs, the first 2 in the early for which he was treated with Coumadin for approximately 10 years. He was off of anticoagulation for approximately 10 years unfortunately suffered another low risk PE in November 2019. He has been placed on apixaban which she remains on to this day. He hasno obvious hypercoagulable condition. Lifelong anticoagulation with apixaban 5 mg p.o. twice daily I will see him yearly or sooner if necessary. Acute deep vein thrombosis (DVT) of femoral vein of right lower extremity (HCC) Chronic venous hypertension with right greater than left varicose veins noted. These are all sequela of prior DVTs/post thrombotic. CEAP 4. Continue graduated compression stockings, knee-high, 20-30 mmHg Follow-up: Return in about 1 year (around 02/20/2021). Chief Complaint: Follow-up Subjective History of Present Illness: Charlie Modi is a 59 y.o. male with a past history significant for recurrent, unprovoked, venous thromboembolic events, first in the early . He presented in November 2019 with a relatively low risk pulmonary embolism and was started on anticoagulation. No advanced therapeutics for pulmonary embolism or DVT were required. At that time, he had residual right distal femoral vein DVT. He has been off of anticoagulation for approximately 10 to 15 years since his index events in the early . There is no clear provocation with his recent presentation. 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 He is on his feetquite a bit. He is long known to have chronic venous insufficiency as well as post thrombotic symptoms, especially in his left lower extremity. Objective ECG 12 Lead Final Result by Juancarlos Ferro MD (07/11/2019 1421) Echocardiogram complete Final Result by Bryant Vick DO (12/04/2019 0822) Review of Systems: The following system(s) were reviewed and negative. Pertinent positive and negative findings are noted in the HPI. [x] Const [x] Eyes [x] ENT [x] Resp [] CV [x] GI [x] [x] Neuro [x] Musc [x] Skin [x] Psych [x] Endo [x] Allergy [x] Heme/Lymph Past Medical History: Diagnosis Date DVT (deep venous thrombosis) (HCC) Hypertension PE (pulmonary thromboembolism) (HCC) Past Surgical History: Procedure Laterality Date HERNIA REPAIR x3, R inguinal & umbilical VARICOSE VEIN SURGERY Right Family History Problem Relation Age of Onset Heart disease Mother Stroke Mother Heart disease Father Other (CABG) Father 70 4 vessel Social History Tobacco Use Smoking Status Never Smoker Smokeless Tobacco Never Used Allergies: Patient has no known allergies. HOME Medications: Current Outpatient Medications on File Prior to Visit Medication Sig apixaban (ELIQUIS) 5 mg Tab Take 2 tablets (10 mg total) by mouth 2 times a day for (7) days, then take 1 tab (5 mg total) by mouth 2 times a day . lisinopriL (PRINIVIL,ZESTRIL) 10 MG tablet Take 1 (one) tablet (10 mg total) by mouth daily . No current facility-administered medications on file prior to visit. Vital Signs: BP 125/75 (BP Location: Left arm, Patient Position: Sitting, BP Cuff Size: Adult) Pulse 73 Wt 113.9 kg (251 lb 3.2 oz) BMI 30.58 kg/m Physical Exam Constitutional: He appears well-developed and well-nourished. HENT: Head: Normocephalic. Mouth/Throat: Oropharynx is clear and moist. Eyes: Conjunctivae and lids are normal. Neck: No JVD present. Carotid bruit is not present. Cardiovascular: Normal rate, regular rhythm, normal heart sounds and normal pulses. Pulmonary/Chest: Effort normal and breath sounds normal. Abdominal: Soft. Bowel sounds are normal. He exhibits no mass. There is no hepatosplenomegaly. There is no abdominal tenderness. Musculoskeletal: Normal range of motion. Neurological: He is alert. Skin: Skin is warm and intact. No rash noted. Hemosiderin deposition left lower extremity medial leg Psychiatric: He has a normal mood and affect. His behavior is normal. Vitals reviewed. No results found for: CHOL, LDLCALC, LDLDIRECT, TRIG, HDL documented in this encounter Assessments Diagnosis Exertional dyspnea Other dyspnea and respiratory abnormality Hypertension, unspecified type Deep vein thrombosis (DVT) of other vein of left lower extremity, unspecified chronicity (HCC) PE (pulmonary thromboembolism) (HCC) Chronic pulmonary embolism Abnormal ECG Nonspecific abnormal electrocardiogram (ECG) (EKG) Diagnosis Exertional dyspnea Other dyspnea and respiratory abnormality Abnormal ECG Nonspecific abnormal electrocardiogram (ECG) (EKG) Diagnosis Hypertension, unspecified type- Primary Acute pulmonary embolism, unspecified pulmonary embolism type, unspecified whether acute cor pulmonale present (HCC) Acute deep vein thrombosis (DVT) of femoral vein of right lower extremity (HCC) Diagnosis Acute pulmonary embolism, unspecified pulmonary embolism type, unspecified whether acute cor pulmonale present (HCC) Acute deep vein thrombosis (DVT) of femoral vein of right lower extremity (HCC) Advance Directives No Advanced Directives Records FoundDocuments on File Type Date Recorded 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 Advance Directives and Living Will Documents on File Type Date Recorded 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 Advance Directives and Livin g Will 12/03/2019 6:09 PM Latest Code Status on File Code Status Date Activated Date Inactivated Comments Full Code 12/03/2019 6:10 PM 12/04/2019 2:02 PM Documents on File Type Date Recorded 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 Started on apixaban Clinical Summary Charlie Modi is a 59 y.o. male with a history of PE & DVT not on blood thinners who presented to [facility] 12/03/2019[facility] in [place] with 1w VALERIO. CTPA with extensive diffuse occluding acute PEs in upper & lower lobes bilaterally with RUL infarction or infection, R heart strain, R adrenal nodule. EKG NSR with QTC 464 & anterior TWI. Trop 0.05. COVID neg at [facility] 1. Acute pulmonary embolism: second PE, has also had two DVTs. Needs lifelong AC which was recommended per cardio 06/2019 but deferred to PCP & ultimately not addressed. CT as noted. LEVD on admitwith acute DVT in distal femoral vein of the RLE, multiple prior age-indeterminate DVTs. TTE on admit with mild RV dysfunction and dilation. PV cardio followed. Transitioned from heparin gtt to apixaban. 2. Hx PE/DVT: not sure when occurred, but very remote. These were idiopathic. Both DVTs in LLE, reports may have had torn artery in LLE in high school. Will need lifelong AC. Discharge Medications Medication List START taking these medications apixaban 5 mg Tab Commonly known as: ELIQUIS Take 2 tablets (10 mg total) by mouth 2 times a day for (7) days, then take 1 tab (5 mg total) by mouth 2 times a day . CONTINUE taking these medications lisinopriL 10 MG tablet Commonly known as: PRINIVILZESTRIL Take 1 (one) tablet (10 mg total) by mouth daily . STOP taking these medications aspirin 325 MG tablet Where to Get Your Medications These medications were sent to [facility] [address] [facility] [address] [facility] [address] apixaban 5 mg Tab lisinopriL 10 MG tablet Physician(s) Family: Bryant Ledezma DO, , Address: [address] / [place] [address] Follow Up: Mirian Nieto MD [address] [facility] [address] Follow up 1 month hospital follow scheduled on Wednesday02-21-2020 at 9:45am with Dr. Eusebia Ledezma DO [address] [place] [address] Schedule an appointment as soon as possible for a visit in 1 week(s) Additional Information: Patient seen and examined day of discharge. For more information regarding patient's care, including complete radiology reports, please contact [facility] at Patient instructions, including activity, were given to the patient/family at discharge. Please seethe After Visit Summary in the medical record for details. Time spent on discharge: > 30 minutes Completed by: Letty Hudson on 12/04/19, 12:52 PM documented in this encounter Additional Source Comments Reason for Visit (unrecogniz ed section and content) Status Reason Specialty Diagnoses / Procedures Referred By Contact Referred To Contact Closed Specialty Services Required/Patient' s Best Interest Cardiology Diagnoses Exertional dyspnea Bryant Ledezma DO [address] [place] [address] [place] [address] Status Reason Specialty Diagnoses / Procedures Referre d By Contact Referred To Contact Closed Radiology Diagnoses Exertional dyspnea Abnormal ECG Procedures NM Myocardial Perfusion Multiple SPECT Juancarlos Ferro MD [address] [place] [id number] Status Reason Specialty Diagnoses / Procedures Referre d By Contact Referred To Contact Closed Cardiology Diagnoses Exertional dyspnea Abnormal ECG Procedures Echocardiogram complete Juancarlos Ferro MD [address] [place] [id number] Reason Comments Follow-up Status Reason Specialty Diagnoses / Procedures Referre d By Contact Referred To Contact Diagnoses Bilat PE w/ R heart strain Assessment & Plan Note - Juancarlos Ferro MD - 07/11/2019 2:50 PM ESTAssessment & Plan Note - Juancarlos Ferro MD - 07/11/2019 2:42 PM EST Miscellaneous Notes (unrecog nized section and content) Associated Problem(s): DVT (deep venous thrombosis) (HCC) Had 2 incidences of left lower extremity DVT. He does not appear to pose a particularly high bleeding risk. It would not be unreasonable to consider long- term oral anticoagulation given this history but I will leave that to primary care. Associated Problem(s): Exertional dyspnea The patient has exertional dyspnea although it has improved since he presented to primary care. He states it feels different than the symptoms he had with pulmonary embolism. I have ordered a Myoview SPECT given his abnormal EKG and a strong family history of heart disease. I have also ordered an echocardiogram to assess for LV function and right-sided pressures. The results of that work-up will be forthcoming. The risks and benefits of the procedure were explained to the patient and he verbalizes an understanding. Associated Problem(s): Hypertension His blood pressure is under excellent control on current medical therapy. documented in this encounter Associated Problem(s): Acute deep vein thrombosis (DVT) of femoral vein of right lower extremity (HCC) Chronic venous hypertension with right greater than left varicose veins noted. These are all sequela of prior DVTs/post thrombotic. CEAP 4. Continue graduated compression stockings, knee-high, 20-30 mmHg Associated Problem(s): Acute pulmonary embolism (HCC) Recurrent PEs, the first 2 in the early for which he was treated with Coumadin for approximately 10 years. He was off of anticoagulation for approximately 10 years unfortunately suffered another low risk PE in November 2019. He has been placed on apixaban which she remains on to this day. He has no obvious hypercoagulable condition. Lifelong anticoagulation with apixaban 5 mg p.o. twice daily I will see him yearly or sooner if necessary. documented in this encounter Peripheral Vascular Sign-Off Conditions Treated: Acute Pulmonary Embolism Procedures Performed (This Admission): No procedure performed. Recommended Discharge Medications: Elqiuis 10mg BID for 7 days followed by 5mg BID for 6 months then 2.5mg BID extended therapy Discharge Plan/Procedure: Routine clinical follow up. Follow-up Appointments: We will arrange a follow up appointment for 3 months at our [place] ([address] [place] [address]) Location. Please call [phone] for questions (available 07/12) Associated Problem(s): Acute pulmonary embolism (HCC) Third event, appears unprovoked in the setting of previous VTE in the early . He was treated with warfarin for about two years but this was stopped >10 years ago. He states he thinks his first event was unprovoked and his second event was provoked by extended travel. He states male blood relatives on his father's side have a history of VTE but nobody including himself have ever been tested for a clotting disorder. He denies smoking and is up to date on his routine cancer screenings. He denies weight loss, night sweats, fevers. He notes no major changes to his life style. He is active and on his feet most of the time. He notes he has been SOB for the last several months. He underwent nuclear stress test 07/2019 which was non-ischemic. He noted increased SOB over the last week. CTPA at [facility] showed extensive bilateral PE L>R. He has remained HDS. Afebrile, 16-20, 143/92-148/98, 91-95% RA. Echo with mild RV dilation and dysfunction Pro-BNP1,045 PESI: 69, Class 2 (low risk) Shock index: 0.46 Continue unfractionated heparin drip with probable transition to DOAC once final disposition made. Given his HDS, will see how he does with ambulation in the halls. If he remains asymptomatic, we will treat medically. He will be treated with therapeutic dosing for 6 months followed by low dose extended therapy. He should continue all routine cancer screenings as an outpatient. Discussed plan of care with Dr. Hudson. Associated Problem(s): Acute deep vein thrombosis (DVT) of femoral vein of right lower extremity (HCC) No complaints of swelling or leg pain. Venous duplex: RLE--acute DVT distal femoral vein, age indeterminate DVT popliteal vein, superficial venous thrombosis R great saphenous vein mid thigh to knee. LLE--Age indeterminate DVT distal femoral, popliteal and gastroc. AC per PE plan The patient was updated on plan of care at bedside. documented in this encounter (unrecognized sect ion and content) No Status Records FoundNo Status Records FoundNo Status Records FoundNo Status Records Found INFORMATION SOURCE (unrecogn ized section and content) DATE CREATED AUTHOR AUTHOR'S ORGANIZ ATION 12/09/2019 [facility] DATE CREATED AUTHOR AUTHOR'S ORGANIZ ATION 12/23/2019 [facility] DATE CREATED AUTHOR AUTHOR'S ORGANIZ ATION 04/18/2021 [facility] Olivia Nevarez RN - 07/21/2019 9:00 AM EST Nursing Notes (unrecognized section and content) Resting ECG sinus bradycardia. Tolerated exercise well, denies CP with exertion. documented in this encounter Fredis Veliz CNP - 12/03/2019 5:58 PM EDT H&P Notes (unrecognized sect ion and content) [facility] History and Physical Note 12/03/19 Charlie Modi 1960 [id number] Assessment/Plan: Charlie Modi is a 59 y.o. male with a history of PE & DVT not on blood thinners who presented to [facility] 12/03/2019[facility] with 1w VALERIO. CTPA with extensive diffuse occluding acute PEs in upper & lower lobes bilaterally with RUL infarction or infection, R heart strain, R adrenal nodule. EKG NSR with QTC 464 & anterior TWI. Trop 0.05. COVID neg at [facility]. 1. Acute pulmonary embolism: second PE, has also had two DVTs. Do not suspect infection. Needs lifelong AC which was recommended per cardio 06/2019 but deferred to PCP & ultimately not addressed. CT as noted. Ordered BLEVD, TTE, tele, BNP, consult to peripheral cardio. Heparin gtt continued. 2. Hx PE/DVT: not sure when occurred, but very remote. These were idiopathic. Both DVTs in LLE, reports may have had torn artery in LLE in [employer]. Will need lifelong AC. 3. HTN: not on meds, appears to be because he did not continue to refill his lisinopril which we will order here. 4. Prolonged QTc: [address] [facility], avoid prolonging meds. 5. Elevated troponin: trace at [facility] & suspect from PE, had NM stress 2019 listed as abnormal though thought due to attenuation artifact (normal wall motion). 6. DVT Prophylaxis: heparin gtt Current living situation: home Expected disposition: TBD Estimated discharge date: TBD Chief Complaint: VALERIO History of Present Illness: Charlie Modi is a 59 y.o. male with a history of PE & DVT not on blood thinners who presented to [facility] 12/03/2019[facility] with 1w VALERIO. CTPA with extensive diffuse occluding acute PEs in upper & lower lobes bilaterally with RUL infarction or infection, R heart strain, R adrenal nodule. EKG NSR with QTC 464 & anterior TWI. Trop 0.05 Has had episodes of VALERIO since Jun. Then with worsening VALERIO for the last week. No orthopnea. Only a minute of exertion prompts symptoms. Mild cough with white sputum. No SOB, nausea, vomiting, fever, chills, dysuria, hematuria, hematochezia, melena, motor or sensory deficit. Today I personally did a review of prior medical records and have summarized my findings in my assessment and plan as noted. Today I also reviewed recent labs, diagnostics, vitals including pulse ox, and eligibility consultant/other provider recommendations. ROS: 10 systems were reviewed and negative, except as noted above. Past Medical, Surgical, Social, Family History: Past Medical History: Diagnosis Date DVT (deep venous thrombosis) (HCC) Hypertension PE (pulmonary thromboembolism) (HCC) Past Surgical History: Procedure Laterality Date HERNIA REPAIR x3 VARICOSE VEIN SURGERY Social History Socioeconomic History Marital status: Spouse name: Not on file Number of children: Not on file Years of education: Not on file Highest education level: Not on file Occupational History Not on file Social Needs Financial resource strain: Not on file Food insecurity Worry: Not on file Inability: Not on file Transportation needs Medical: Not on file Non-medical: Not on file Tobacco Use Smoking status: Never Smoker Smokeless tobacco: Never Used Substance and Sexual Activity Alcohol use: Yes Alcohol/week: 3.0 standard drinks Types: 3 Cans of beer per week Drug use: Never Sexual activity: Not on file Lifestyle Physical activity Days per week: Not on file Minutes per session: Not on file Stress: Not on file Relationships Social connections Talks on phone: Not on file Gets together: Not on file Attends quaker service: Not on file Active member of club or organization: Not on file Attends meetings of clubs or organizations: Not on file Relationship status: Not on file Other Topics Concern Not on file Social History Narrative Not on file Family History Problem Relation Age of Onset Heart disease Mother Stroke Mother Heart disease Father Other (CABG) Father 70 4 vessel Home Medications: Charlie Modi Home Medication Instructions Prior to Surgery ADRIANNA:[id number] Printed on:12/03/19 8835 Medication Information Take last dose on Take the morning of surgery Comment(s) aspirin 325 MG tablet Take 325 mg by mouth daily . lisinopriL (PRINIVIL,ZESTRIL) 10 MG tablet Take 10 mg by mouth daily . Physical Exam: BP (!) 145/104 (BP Location: Left arm, Patient Position: Sitting) Pulse 82 Temp 98.7 F (37.1 C) (Oral) Resp 16 Ht 6' 4 Wt 109.8 kg (242 lb 1 oz) SpO2 92% BMI 29.47 kg/m General: NAD Eyes: gaze conjugate, tracks ENT: MMM Cardiovascular: Regular rate. Respiratory: Clear to auscultation, no wheezes or accessory muscle use Gastrointestinal: Soft, non tender, positive bowel sounds Mskt/extremities: L>R leg with evidence of chronic venous stasis Skin: Warm, dry Neuro: Alert, oriented, cranial nerves grossly intact Psych: Appropriate Labs, Imaging, and Studies reviewed: No results found for: GLUCOSE, CALCIUM, NA, K, CL, BUN, CREATININE No results found for: WBC, HGB, HCT, MCV, PLT No results found for: ALT, AST, GGT, ALKPHOS, BILITOT No results found for: INR Associated attestation - Clem De Paz MD - 12/03/2019 7:13 PM EDT I saw and evaluated the patient independently. Discussed case with Fredis Veliz CNP. I personally reviewed their note and agree with their history, exam, and plan of care. All laboratory and images personally reviewed. Chart reviewed, including documentation from previous hospitalizations and eligibility consultant recommendations as summarized below. Briefly, patient with history of VTE in early 200s - treated with Coumadin which was stopped over a decade ago who presented with VALERIO x [address] PA with extensive b/l PE. He is HDS, not tachycardic and on RA currently. Check BNP, TTE. Continue heparin gtt. Likely d/c 12/04/19 on DOAC. CM consult. documented in this encounter Jannet Goldberg RN - 12/04/2019 9:46 AM EDTBMadelin painting CNP - 12/04/2019 8:30 AM EDT Consult Notes (unrecognized section and content) Associated Order(s): IP CONSULT TO CARE MANAGEMENT; IP CONSULT TO CARE MANAGEMENT DISCHARGE PLAN PROGRESS NOTE Date: 12/04/2019 Time: 9:46 AM Patient Name: Charlie Modi Date of : 1960 Sex: Male Called local pharmacy, [facility] 1st 30 days will be free with trial coupon and $10/mo with [employer] copay card. Cards given to patient. Associated Order(s): IP CONSULT TO PERIPHERAL VASCULAR DISEASE CARDIOLOGY Peripheral Vascular Cardiology Inpatient Consult Heart & Vascular [facility] 12/04/2019 Madelin Meeks CNP [facility] Patient: Charlie Modi Date of : 1960 (59 y.o.) Referring Provider: No ref. provider found PCP: Bryant Ledezma, DO Assessment/Plan: Acute pulmonary embolism (HCC) Assessment & Plan Third event, appears unprovoked in the setting of previous VTE in the early . He was treated with warfarin for about two years but this was stopped >10 years ago. He states he thinks his first event was unprovoked and his second event was provoked by extended travel. He states male blood relatives on his father's side have a history of VTE but nobody including himself have ever been tested for a clotting disorder. He denies smoking and is up to date on his routine cancer screenings. He denies weight loss, night sweats, fevers. He notes no major changes to his life style. He is active and on his feet most of the time. He notes he has been SOB for the last several months. He underwent nuclear stress test 07/2019 which was non-ischemic. He noted increased SOB over the last week. CTPA at [facility] showed extensive bilateral PE L>R. He has remained HDS. Afebrile, 16-20, 143/92-148/98, 91-95% RA. Echo with mild RV dilation and dysfunction Pro-BNP1,045 PESI: 69, Class 2 (low risk) Shock index: 0.46 Continue unfractionated heparin drip with probable transition to DOAC once final disposition made. Given his HDS, will see how he does with ambulation in the halls. If he remains asymptomatic, we will treat medically. He will be treated with therapeutic dosing for 6 months followed by low dose extended therapy. He should continue all routine cancer screenings as an outpatient. Discussed plan of care with Dr. Hudson. Acute deep vein thrombosis (DVT) of femoral vein of right lower extremity (HCC) Assessment & Plan No complaints of swelling or leg pain. Venous duplex: RLE--acute DVT distal femoral vein, age indeterminate DVT popliteal vein, superficial venous thrombosis R great saphenous vein mid thigh to knee. LLE--Age indeterminate DVT distal femoral, popliteal and gastroc. AC per PE plan Subjective Reason for Consultation: Acute History of Present Illness: Charlie Modi is a 59 y.o. male Third event, appears unprovoked in the setting of previous VTE in the early . He was treated with warfarin for about two years but this was stopped >10 years ago. He states he thinks his first event was unprovoked and his second event was provoked by extended travel. He states male blood relatives on his father's side have a history of VTE but nobody including himself have ever been tested for a clotting disorder. He denies smoking and is up to date on his routine cancer screenings. He denies weight loss, night sweats, fevers. He notes no major changes to his life style. He is active and on his feet most of the time. He notes he has been SOB for the last several months. He underwent nuclear stress test 07/2019 which was non-ischemic. He noted increased SOB over the last week. CTPA at [facility] showed extensive bilateral PE. He has remained HDS. Afebrile, 16-20, 143/92-148/98, 91-95% RA. Imaging: I independently reviewed the Venous duplex, CTPA and echocardiogram and agree with the interpretation(s) with the following comments. As above. ECG 12 Lead Final Result by Juancarlos Ferro MD (07/11/2019 1421) Echocardiogram complete Final Result by Bryant Vick DO (12/04/2019 0822) Review of Systems: The following system(s) were reviewed and negative. Pertinent positive and negative findings are noted in the HPI. [x] Const [x] Eyes [x] ENT [x] Resp [] CV [x] GI [x] [x] Neuro [x] Musc [x] Skin [x] Psych [x] Endo [x] Allergy [x] Heme/Lymph Past Medical History: Diagnosis Date DVT (deep venous thrombosis) (HCC) Hypertension PE (pulmonary thromboembolism) (HCC) Past Surgical History: Procedure Laterality Date HERNIA REPAIR x3, R inguinal & umbilical VARICOSE VEIN SURGERY Right Family History Problem Relation Age of Onset Heart disease Mother Stroke Mother Heart disease Father Other (CABG) Father 70 4 vessel Social History Tobacco Use Smoking Status Never Smoker Smokeless Tobacco Never Used Additional History Comments: None Allergies: Patient has no known allergies. Current Facility-Administered Medications Medication Dose Route Frequency Provider Last Rate Last Dose acetaminophen (TYLENOL) tablet 650 mg 650 mg Oral Q4H PRN Fredis Veliz CNP aluminum-magnesium hydroxide-simethicone (MAALOX PLUS) 200-200-20 mg/5 mL suspension 30 mL 30 mL Oral Q4H PRN Fredis Veliz CNP apixaban (ELIQUIS) tablet 10 mg 10 mg Oral BID Letty Hudson MD Followed by [START ON 12/11/2019] apixaban (ELIQUIS) tablet 5 mg 5 mg Oral BID Letty Hudson MD bisacodyL (DULCOLAX) suppository 10 mg 10 mg Rectal Daily PRN Fredis Veliz CNP heparin (porcine) 25,000 unit/250 mL(100 unit/mL) in D5W infusion 0-70 Units/kg/hr (Order-Specific) Intravenous Continuous Fredis Veliz CNP 22 mL/hr at 12/04/19 0544 20 Units/kg/hr at 12/04/19 0544 heparin bolus from bag 0-10,000 Units 0-10,000 Units Intravenous Continuous PRN Fredis Veliz CNP 4,400 Units at 12/04/19 0208 lisinopriL (PRINIVIL,ZESTRIL) tablet 10 mg 10 mg Oral Daily with lunch Fredis Veliz CNP 10 mg at 12/03/19 2254 magnesium hydroxide (MOM) 400 mg/5 mL suspension 2,400 mg 30 mL Oral Daily PRN Fredis Veliz CNP ondansetron (ZOFRAN-ODT) disintegrating tablet 4 mg 4 mg Oral Q6H PRN Fredis Veliz CNP Or ondansetron (ZOFRAN) injection 4 mg 4 mg Intravenous Q6H PRN Fredis Veliz CNP perflutren lipid microspheres (DEFINITY) 0.143 mg/mL solution 0-10 mL of mixture 0-10 mL of mixture Intravenous Once in imaging Fredis Veliz CNP Objective: Physical Examination: BP 130/85 Pulse 71 Temp 98.1 F (36.7 C) (Oral) Resp 15 Ht 6' 4 Wt 109.8 kg (242 lb 1 oz) SpO2 95% BMI 29.47 kg/m Constitutional: Alert, well appearing, not in distress.? Eyes: Conjunctivae/corneas clear. Lungs: Clear to auscultation, no wheezes, rales or rhonchi. Cardiovascular: Normal rate and regular rhythm, S1 and S2 normal, no murmurs noted, no carotid bruit, no pedal edema, no JVD. Abdomen: Soft, nontender with normal active bowel sounds; no masses or organomegaly. Skin: Normal coloration and turgor; no rashes or lesions. Musculoskeletal: Normal Range of Motion (ROM) Psych: Oriented to time, person, and place; appropriate mood. No results found for: CHOL, LDLCALC, LDLDIRECT, TRIG, HDL Serum creatinine: 0.92 mg/dL 12/04/19 0459 Estimated creatinine clearance: 106.1 mL/min Associated attestation - Perry Ceja DO - 12/04/2019 10:08 AM EDT I have directly interviewed and examined the patient, reviewed the pertinent lab and radiographic data, and discussed the differential diagnosis, investigational plan, and therapeutic options. I agree with the assessment and plan with the following comments/additions: I had a face to face interaction with the patient at bedside. Low Risk Sub Massive PE. Third event, appears unprovoked in the setting of previous VTE in the early . He was treated with warfarin for about two years but this was stopped >10 years ago. He states he thinks his first event was unprovoked and his second event was provoked by extended travel. He states male blood relatives on his father's side have a history of VTE but nobody including himself have ever been tested for a clotting disorder. He denies smoking and is up to date on his routine cancer screenings. He denies weight loss, night sweats, fevers. He notes no major changes to his life style. He is active and on his feet most of the time. He ambulated this am with no symptoms around the nurses station. He feels better than yesterday regarding his work of breathing. No indication for advanced therapy. Would treat with eliquis 10 mg bid for one week, then 5 mg bid for 6 months. We will follow him as an outpatient. I would use extended eliquis 2.5 mg bid after 6 months given his history. Acute lower extremity DVT. Venous duplex: RLE--acute DVT distal femoral vein, age indeterminate DVT popliteal vein, superficial venous thrombosis R great saphenous vein mid thigh to knee. LLE--Age indeterminate DVT distal femoral, popliteal and gastroc. This is a low risk anatomy and will be treated as above for PE. Compression stockings 20 - 30 mmHg knee high. On in am, off in pm. documented in this encounter Vik Joyner RN - 12/03/2019 5:24 PM EDT ED Notes (unrecognized secti on and content) Patient transported to [place] [facility]. Receiving unit notified of patient's ETA. Vital signs: BP 145/98, HR 86, RR 20, Pulse Ox 92-93 on Room Air . Chief complaint of PE. Patient does have patent IV access. 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 Patient will be transported to room 3364 on arrival. documented in this encounter Care Teams (unrecognized sec tion and content) FOR RECORDS PERTAINING TO PATIENTS WHO ARE OR HAVE BEEN ENROLLED IN A CHEMICAL DEPENDENCY/SUBSTANCEABUSE PROGRAM, SOME INFORMATION MAY BE OMITTED. This clinical summary was aggregated from multiple sources. Caution should be exercised in using it in the provision of clinical care. This summary normalizes information from multiple sources, and as a consequence, information in this document may materially change the coding, format and clinical context of patient data. In addition, data may be omitted in some cases. CLINICAL DECISIONS SHOULD BE BASED ON THE PRIMARY CLINICAL RECORDS. [email or web address] provides no warranty or guarantee of the accuracy or completeness of information in this document.
== END | disposition home or self-care (01) ==
PROVIDERS: Referring Provider Urology; Visit Provider Urology
DX: N41.9 Inflammatory disease of prostate, unspecified (principal); R97.20 Elevated prostate specific antigen [PSA]
CPT/HCPCS: 88305; G0416

== ENCOUNTER → 2023-12-07 | Outpatient (CLI) | payer OTHER, SELFPAY ==
[2023-12-07 16:49] LABS: Absolute Lymphocyte Count 2.03 X10^3/uL (0.83-4.51); Absolute Neutrophil Count 4.6 X10^3/uL (2.0-7.7); Basophil# 0.02 X10^3/uL; Basophil% 0.3 % (0-1); Eosinophil# 0.08 X10^3/uL; Eosinophils% 1.1 % (0-5); Hematocrit 45.7 % (40-54); Hemoglobin 15.2 g/dL (13.0-16.5); Lymphocyte # 2.03 X10^3/ul (0.83-4.51); Mean Corp Hgb Conc 33.3 g/dL (32-36); Mean Corpuscular Hgb 29.4 pg (27.0-32.0); Mean Corpuscular Volume 88.4 fL (80-94); Mean Platelet Vol. 9.2 fl (6.2-12.0); Monocyte# 0.47 X10^3/uL; Monocyte% 6.5 % (0-10); NRBC Flagged by Analyzer 0 % (0-5); Neutrophil # 4.63 X10^3/uL (2.7-7.7); Platelet Count 260 K/mm3 (150-450); RBC Distribution Width CV 14.3 % (11.6-14.6); RBC Distribution Width SD 46.5 fl (35.1-43.9); Red Blood Count 5.17 M/mm3 (4.6-6.2); White Blood Count 7.2 K/mm3 (4.4-11.0)
[2023-12-07 17:16] LABS: ALB/GLOB Ratio 1.1 RATIO (0.9-2.4); AST(SGOT) 19 U/L (15-37); Alanine Aminotransfer ALT/SGPT 25 U/L (16-61); Albumin, Serum 3.9 g/dL (3.2-5.0); Alkaline Phosphatase 112 U/L (45-117); Anion Gap 8 (5-15); BUN 17 mg/dL (7-18); BUN/Creat Ratio 16.2 RATIO (10-20); Calcium,Total 8.8 mg/dL (8.5-10.1); Chloride 105 mmol/L (98-107); Cholesterol 170 mg/dL (200); Creatinine, Serum 1.05 mg/dL (0.70-1.30); EST Glomerular Filtration Rate 76 mL/min (>60); Est Glom Filt Rate - Afr Amer 92 mL/min (>60); Globulin 3.6 g/dL (2.2-4.2); Glucose 86 mg/dL (74-106); High Density Lipoprotein 54 mg/dL; PSA,Total- Diagnostic 7.82 ng/mL (0.0-4.0); Potassium 4.1 mmol/L (3.5-5.1); Protein, Total 7.5 g/dL (6.4-8.2); Sodium Level 138 mmol/L (136-145); Triglycerides 77 mg/dL; Very Low Density Lipoprotein 15 mg/dL (5-40)
== END | disposition home or self-care (01) ==
LOC: LAB 16:10
PROVIDERS: Referring Provider Nurse Practitioner Family; Visit Provider Nurse Practitioner Family
DX: R97.20 Elevated prostate specific antigen [PSA] (principal); I10 Essential (primary) hypertension
CPT/HCPCS: 36415; 80053; 80061; 84153; 85025